=== PATIENT | female | born 1970 | race Caucasian/White ===

== ENCOUNTER 2019-03-19 09:42 | Day surgery (SDC) | payer BC ==
[~2019-03-19 09:42] MED LIST: Lactated Ringers 1,000 ML IV ONE; Lactated Ringers 1,000 ML IV SCH; Sensorcaine 0.25% 10 ML ONE
[2019-03-19] MEDS ORDERED: Versed 2 MG/2 ML Injection IV ONE ×2 (09:43→10:31)
[2019-03-19] MEDS ORDERED: SUBLIMAZE 100 MCG/2 ML IV ONE (09:43)
[2019-03-19] MEDS ORDERED: DIPRIVAN 200 MG/20 ML IV ONE (09:43)
[2019-03-19] MEDS ORDERED: Levofloxacin 500MG/100ML D5W 500 MG/100 ML BAG IV ONE (10:31)
[2019-03-19] MEDS ORDERED: Lactated Ringers 1,000 ML IV ONE (12:56)
[2019-03-19] MEDS ORDERED: MORPHINE SULFATE 10 MG/ML ONE (15:01)
[2019-03-19] MEDS ORDERED: Zofran 4 MG/2 ML VIAL ONE (15:01)
[2019-03-19] MEDS ORDERED: SUBLIMAZE 100 MCG/2 ML ONE (15:01)
[2019-03-19 16:18] VITALS: BP 140/71; PULSE 79; O2SAT 97
--- NOTE | 2019-03-20 12:51 | OP ---
PROCEDURE DATE/TIME: 03/19/2019 1416 PREOPERATIVE DIAGNOSIS: Left breast mass. POSTOPERATIVE DIAGNOSIS: Left breast mass. PROCEDURE: Excision left breast mass. PROCEDURE PERFORMED BY: Neyda Garcia M.D. ESTIMATED BLOOD LOSS: Minimal. ANESTHESIA: General. COMPLICATIONS: None. SPECIMEN: Left breast mass. HISTORY: This is a 48 year-old female who had a cystic inflammation of her left breast which appears to be more of a subcutaneous lesion. The inflammation extended deeper. It was very sore, tender and the acute infection has resolved. She does appear to have chronic inflammation from this down towards her chest wall from this lesion. It is situated at the medial aspect of her lower left breast. I saw the patient in the preoperative area. We confirmed with her the H&P and consent. She had already discussed with me all of the risks, benefits, alternatives regarding this procedure. She would like to proceed. Any remaining questions answered. She was marked while awake and alert. DESCRIPTION OF PROCEDURE: She was brought back to the operative suite. Anesthesia induced. Prepped and draped in usual sterile fashion. Complete time out performed. Markings verified as well as the correct site. We then made an elliptical incision to completely encompass the chronically inflamed tissue as well old draining track. Incision taken down through skin and subcutaneous tissue. I did have to go into the breast tissue and take some of the breast tissue as this had obviously been involved with the inflammation. I removed the unhealthy tissue all the way down to healthy breast tissue and to healthy subcutaneous tissue. Once this was done and we had completely encircled the cystic lesion, we did see that the lesion had more superficial aspect as well as track that appeared to be deeper. I did end up taking a small amount of axillary tissue inferiorly since this was right at the border of the lesion to insure that the lesion was completely excised. There is only healthy tissue remaining. There are no cystic remnants at all. The wound was very thoroughly irrigated, closed with 3-0 Prolene interrupted vertical mattress suture. Sterile dressing placed. Good hemostasis. No complications. The patient will follow up with me as an outpatient for wound check and pathology follow up.
== END 2019-03-19 16:30 | disposition home or self-care (01) ==
LOC: SDC 09:42
PROVIDERS: ATTEND Surgery
DX: N60.02 Solitary cyst of left breast (principal); E11.9 Type 2 diabetes mellitus without complications; I10 Essential (primary) hypertension; E03.9 Hypothyroidism, unspecified
CPT/HCPCS: 82962; J1956; J2250; J2270; J2405; J2704; J3010

== ENCOUNTER 2021-08-31 09:27 | Day surgery (SDC) | payer BC ==
--- NOTE | 2021-08-31 09:24 | HP ---
DATE OF SURGERY: 08/31/2021 HISTORY OF PRESENT ILLNESS: The patient is a 51-year-old with last colonoscopy in the past in [place]. He has had some aches and pains, change in bowel habits now with diarrhea alternating with constipation, some rectal bleeding at times. PAST MEDICAL HISTORY: Hypertension, diabetes, thyroid disease, diverticular disease, asthma in the past. The patient apparently has history of tubular adenoma in the past. PAST SURGICAL HISTORY: Hysterectomy. She had some biopsies, D&C, cholecystectomy, appendectomy. MEDICATIONS: [place]-3, atorvastatin, estradiol, Chlorthalidone, pioglitazone, carvedilol, levothyroxine for some hypothyroidism, montelukast, Basaglar, amitriptyline, ALLERGIES: VANCOMYCIN. SULFA. PENICILLIN. NUBAIN. FAMILY HISTORY: Heart disease, hypertension, heart failure, heart attack, lung cancer, diabetes, Hodgkin's disease. SOCIAL HISTORY: No smoking or alcohol abuse. REVIEW OF SYSTEMS: Fourteen systems reviewed. Pertinent for multiple medical problems as noted above. No chest pain or palpitations. Other systems negative or noncontributory as above and per preadmission questionnaire. PHYSICAL EXAMINATION: GENERAL: No acute distress. HEENT: Sclerae nonicteric. NECK: No JVD. CHEST: Equal excursion, breath sounds symmetrical. CVS: Regular rate and rhythm. ABDOMEN: Soft. EXTREMITIES: No cyanosis. NEURO: Alert, oriented, moving extremities symmetrically. RECTAL: Deferred timed to endoscopy exam. PSYCH: Appropriate mood and affect. IMPRESSION: History of some rectal bleeding, history of some change in bowel habits, history of polyps. She is in need of follow up colonoscopy. Explained the risks in detail but not limited to bleeding or infection, risk of bowel injury or perforation possibly requiring open procedure, risk of missed or nondiagnosis or incomplete exam possibly requiring barium enema, other studies or procedures, general risk of anesthesia or sedation, risk of bowel prep but not limited to, consent obtained, will proceed with outpatient colonoscopy.
[2021-08-31] MEDS ORDERED: Lactated Ringers 1,000 ML IV SCH (10:00)
[2021-08-31] MEDS ORDERED: DIPRIVAN 200 MG/20 ML IV ONE (11:33)
[2021-08-31 13:02] VITALS: BP 152/76; PULSE 82; O2SAT 97
--- NOTE | 2021-09-01 09:05 | OP ---
SURGERY DATE/TIME: 08/31/2021 1127 PREOPERATIVE DIAGNOSIS: History of change in bowel habits, increased diarrhea, history of some lower abdominal aches, history of rectal bleeding at times. POSTOPERATIVE DIAGNOSES: 1) Small early polyps. 2) Mild diverticulosis. 3) Fair but slightly limited bowel prep. 4) ASA Class II. PROCEDURES: 1) Colonoscopy to terminal ileum. 2) Retrograde ileoscopy. 3) Random cold biopsies of ileum to evaluate for microscopic ileitis. 4) Random cold biopsies of colon to evaluate for microscopic colitis. 5) Hot biopsy polypectomy small early polyp versus hyperplastic lesion transverse colon x1, sigmoid colon x1, rectosigmoid colon x2 and rectum x2. 6) Withdrawal time around 10 minutes. 7) Prep fair a little bit on the limited side. SURGEON: Dr. Diallo Guo. [employer]: Abbi Rivera, Medical Student III. ANESTHESIA: MAC. ESTIMATED BLOOD LOSS: Minimal. INDICATIONS: As noted above. Risks and benefits explained in detail but not limited to and consent obtained. DESCRIPTION OF PROCEDURE AND FINDINGS: The patient is taken to the endoscopy room. MAC anesthesia induced. After official time out and no disagreement with planned procedure, digital rectal exam did not reveal any rectal masses. Video colonoscope inserted up the slightly tortuous sigmoid, descending, transverse and ascending colon. With external pressure the scope was able to be passed up the terminal ileum. Retrograde ileoscopy performed which was grossly unremarkable. Given her symptom complaints of change in bowel habits, diarrhea, abdominal aches and history of some rectal bleeding, it was felt retrograde ileoscopy was warranted and this was performed. Cold biopsies taken to evaluate for microscopic ileitis. Good hemostasis noted. Scope then pulled back, slow careful withdrawal from the colon over the next ten minutes. Some random cold biopsies taken in the colon to evaluate for microscopic colitis. Appendiceal orifice and valve were photo documented as well as the ileum. The scope is slowly and carefully withdrawn over the next ten minutes stopping to remove small, early polyps versus hyperplastic lesion in the transverse colon x1, sigmoid colon x1, rectosigmoid colon x2 and the rectum x2, small early polyps versus hyperplastic lesions. The scope is withdrawn. The patient tolerated the procedure well. There were no immediate complications. Findings discussed with the family/friend out in the waiting area.
== END 2021-08-31 13:05 | disposition home or self-care (01) ==
LOC: SDC 09:27
PROVIDERS: ATTEND Surgery
DX: D12.7 Benign neoplasm of rectosigmoid junction (principal); D12.3 Benign neoplasm of transverse colon; R19.7 Diarrhea, unspecified; K57.90 Diverticulosis of intestine, part unspecified, without perforation or abscess without bleeding; E11.9 Type 2 diabetes mellitus without complications; Z79.899 Other long term (current) drug therapy
CPT/HCPCS: 82947; 88305; J2704

== ENCOUNTER 2021-12-28 08:52 | Day surgery (SDC) | payer BC ==
[~2021-12-28 08:52] MED LIST changes: -Sensorcaine 0.25% 10 ML ONE
--- NOTE | 2021-12-28 08:58 | HP ---
DATE OF SURGERY: 12/28/2021 HISTORY OF PRESENT ILLNESS: The patient is a 51-year-old who had prior history of upper and lower endoscopy, severe erosive esophagus and ulceration. She is in need of short term follow up evaluation to make sure there is healing. She has been swallowing a little better. She is in need of follow up upper endoscopy to evaluate for severe erosive esophagitis, ulceration. PAST MEDICAL HISTORY: Hypothyroidism, diabetes, diverticular disease, asthma, gastritis and esophagitis in the past. Also includes carpal tunnel syndrome in the past. She had Helicobacter pylori in the past. PAST SURGICAL HISTORY: Appendectomy. Hysterectomy. Cholecystectomy. Biopsies. D&C. MEDICATIONS: Estradiol, omega-3 fatty acid, Entresto, Chlorthalidone, atorvastatin, pioglitazone, carvedilol, levothyroxine, montelukast, Basaglar, amitriptyline. ALLERGIES: NUBAIN. PENICILLIN. SULFA. VANCOMYCIN. TORADOL. FAMILY HISTORY: Thyroid disease, diabetes, lung cancer, Hodgkin's disease, hypertension. SOCIAL HISTORY: No smoking or alcohol abuse. REVIEW OF SYSTEMS: Fourteen systems reviewed. Negative or noncontributory as above and per preadmission questionnaire. PHYSICAL EXAMINATION: GENERAL: No acute distress. HEENT: Sclerae nonicteric. NECK: No JVD. CHEST: Equal excursion, nonlabored breathing. CVS: Regular rate and rhythm. ABDOMEN: Soft. No peritoneal signs. EXTREMITIES: No significant edema. NEURO: Alert, oriented, moving extremities symmetrically. PSYCH: Appropriate mood and affect. IMPRESSION: History of severe ulcerated esophagus and endoscopist recommended short term follow up upper endoscopy to evaluate for healing given findings. She presents for follow up upper endoscopy to evaluate for healing in this severe ulcerated esophagitis and gastritis. She is being re-evaluated for Helicobacter pylori that she had in the past. General risk of bleeding or infection, risk of bowel injury or perforation, risk of missed or nondiagnosis or incomplete exam possibly requiring barium swallow, other studies or procedures, general risk of anesthesia or sedation but not limited to, consent was obtained. Will proceed with EGD possible biopsy as an outpatient under MAC anesthesia.
[2021-12-28] MEDS ORDERED: DIPRIVAN 200 MG/20 ML IV ONE (11:10)
[2021-12-28] MEDS ORDERED: Zofran 4 MG/2 ML VIAL ONE (11:26)
[2021-12-28] MEDS ORDERED: Versed 2 MG/2 ML Injection ONE (12:20)
[2021-12-28] MEDS ORDERED: Versed 2 MG/2 ML Injection IV ONE (12:27)
[2021-12-28] MEDS ORDERED: APRESOLINE 20 MG/ML INJ ONE (13:03)
[2021-12-28] MEDS ORDERED: APRESOLINE 20 MG/ML INJ IV PRN (13:06)
[2021-12-28] MEDS ORDERED: Lactated Ringers 1,000 ML IV ONE (13:08)
[2021-12-28 13:20] VITALS: PULSE 86; O2SAT 98
[2021-12-28 13:34] VITALS: BP 151/86
--- NOTE | 2021-12-28 14:09 | OP ---
SURGERY DATE/TIME: 12/28/2021 1115 PREOPERATIVE DIAGNOSIS: History of severely ulcerated esophagus, need for follow up upper endoscopy for re-evaluation. History of reflux. POSTOPERATIVE DIAGNOSES: 1) Minimal to mild gastritis or gastropathy. 2) Greatly improved distal esophagus, biopsy pending to evaluate for short segment of Gutierres's esophagus. 3) Moderate amount of food in the stomach with some gastroparesis (question gastroparesis). PROCEDURES: EGD with cold biopsy of the antrum to evaluate for Helicobacter pylori. Cold biopsy distal esophagus to evaluate for short segment distal gastroesophagitis versus Gutierres's versus normal variation of gastroesophageal junction. SURGEON: Dr. Diallo Guo. ANESTHESIA: MAC. ESTIMATED BLOOD LOSS: Minimal. INDICATIONS: As noted above. Risks and benefits explained in detail and not limited to and consent obtained. DESCRIPTION OF PROCEDURE AND FINDINGS: The patient is taken to the operating room. MAC anesthesia introduced. After official time out and no disagreement with planned procedure, a bite block positioned. Video gastroscope easily passed the esophagus to the gastroesophageal junction through the patent pylorus to the third portion of the duodenum. Duodenum grossly unremarkable. Back in the stomach there was some mild gastric erythema. Cold biopsy taken to evaluate for Helicobacter pylori. Good hemostasis noted. Whether this is minimal gastritis or gastropathy, cold biopsy taken. Good hemostasis noted. The scope withdrawn. On retroflex, the gastroesophageal junction snug against the scope. There was food debris in the stomach on gastric evaluation. No gross masses noted. No gross ulcers. Scope pulled back. The gastroesophageal junction where she had the severely ulcerated esophagitis before seemed much improved. Cold biopsy taken of small fingerlette of salmon-pink mucosa whether this is early Gutierres's versus early distal gastroesophagitis versus normal variation of gastroesophageal junction, cold biopsy taken. Good hemostasis noted. The remainder of the esophagus grossly unremarkable. Again, the severe esophagitis or ulcerations she had in the past appear to be improved. Good hemostasis noted. Scope is withdrawn. Findings discussed with the family or friend in the waiting area.
== END 2021-12-28 13:45 | disposition home or self-care (01) ==
LOC: SDC 08:52
PROVIDERS: ATTEND Surgery
DX: Z09 Encounter for follow-up examination after completed treatment for conditions other than malignant neoplasm (principal); K29.40 Chronic atrophic gastritis without bleeding; E11.9 Type 2 diabetes mellitus without complications; K31.A0 Gastric intestinal metaplasia, unspecified
CPT/HCPCS: 82947; J0360; J2250; J2405; J2704